=== PATIENT | female | born 1965 | race Caucasian/White ===

== ENCOUNTER 2018-12-05 16:19 | Emergency (ER) | payer OTHER ==
[~2018-12-05] VITALS: Ht 162.6 cm; Wt 49.0 kg
[~2018-12-05 16:19] MED LIST: ASPI-612 PO; AZIT1PAC PO; BUDE10.2 IH; LISI-338 PO; VARE0.5T PO
[2018-12-05] MEDS ORDERED: IV NORMAL SALINE 1000ML BAG 1,000 ML IV SCH (16:48)
[2018-12-05] MEDS ORDERED: VANCOMYCIN PER PHARMACY MC ONE (17:00)
[2018-12-05] MEDS ORDERED: DIPHTH,PERTUSS(ACELL),TET TOX 0.5 ML DISP.SYRIN. VAX IM ONE (17:00)
[2018-12-05] MEDS ORDERED: PIPERACILLIN/TAZOBACTAM 4.5 GM in IV NORMAL SALINE 100ML 100 ML IV ONE (17:00)
[2018-12-05] MEDS ORDERED: VANCOMYCIN 1.25 GM in IV NORMAL SALINE 250ML 250 ML IV ONE (17:00)
--- NOTE | 2018-12-05 17:02 | PHYS DOC ---
Past Medical History Past Medical History: CVA, Hypertension, Other Additional Past Medical Histor: cva x 2(last one 2013, no deficits) (NELY BROWN APRN) Past Surgical History: (NELY BROWN APRN) Additional Information: 0.5 PPD Alcohol Use: Heavy Drug Use: None (NELY BROWN APRN) Adult General Chief Complaint Chief Complaint: ELBOW PROBLEM HPI HPI Patient is a 53 year old female with history of hypertension who presents to the ED today complaining of right elbow pain that began 8 days ago after she fell on the elbow. Patient is also complaining of a wound to the area with drainage that she noted today. Denies any fever. Denies any nausea vomiting. (NELY BROWN APRN) Review of Systems Review of Systems Constitutional: Denies fever or chills [] Eyes: Denies change in visual acuity, redness, or eye pain [] HENT: Denies nasal congestion or sore throat [] Respiratory: Denies cough or shortness of breath [] Cardiovascular: No additional information not addressed in HPI [] GI: Denies abdominal pain, nausea, vomiting, bloody stools or diarrhea [] : Denies dysuria or hematuria [] Musculoskeletal: Reports right elbow pain Integument: Denies rash or skin lesions [] Neurologic: Denies headache, focal weakness or sensory changes [] All other systems were reviewed and found to be within normal limits, except as documented in this note. (NELY BROWN APRN) Current Medications Current Medications Current Medications Medications (Trade) Dose Ordered Sig/Damir Start Time Stop Time Status Last Admin Dose Admin Diphtheria/ Tetanus/Acell Pertussis (Boostrix) 0.5 ml ONCE ONCE 12/05/18 17:00 12/05/18 17:01 DC 12/05/18 17:02 0.5 ML Piperacillin Sod/ Tazobactam Sod 4.5 gm/Sodium Chloride 100 ml @ 200 mls/hr 1X ONCE 12/05/18 17:00 12/05/18 17:29 DC 12/05/18 17:02 200 MLS/HR Sodium Chloride 1,000 ml @ 1,650 mls/hr Q37M 12/05/18 16:48 12/05/18 17:48 DC 12/05/18 17:03 1,650 MLS/HR Vancomycin HCl (Vanco Per Pharmacy) 1 each 1X ONCE 12/05/18 17:00 12/05/18 17:01 DC Vancomycin HCl 1.25 gm/Sodium Chloride 250 ml @ 166.667 mls/hr 1X ONCE 12/05/18 17:00 12/05/18 18:29 DC 12/05/18 18:04 166.667 MLS/HR (RAMA RAI MD) Allergies Allergies Allergies Coded Allergies Type Severity Reaction Last Updated Verified No Known Drug Allergies 08/15/17 No (RAMA RAI MD) Physical Exam Physical Exam Constitutional: Well developed, well nourished, no acute distress, non-toxic appearance. [] HENT: Normocephalic, atraumatic, bilateral external ears normal, oropharynx moist, no oral exudates, nose normal. [] Eyes: PERRLA, EOMI, conjunctiva normal, no discharge. [] Neck: Normal range of motion, no tenderness, supple, no stridor. [] Cardiovascular:Heart rate regular rhythm, no murmur [] Lungs & Thorax: Bilateral breath sounds clear to auscultation [] Abdomen: Bowel sounds normal, soft, no tenderness, no masses, no pulsatile masses. [] Skin: Warm, dry, no erythema, no rash. [] Back: No tenderness, no CVA tenderness. [] Extremities: Right elbow with no obvious deformity, mild swelling noted on the right olecranon process, with a raise center of the right elbow approximately 1 x 1 cm with trace yellow drainage. There is surrounding 2 cm of cellulitis. The elbow is tender. Full range of motion to the elbow. Patient able to plantarflex the cephalexin extend and flex the right elbow. +2 right radial pulse. Adequate radial, medial, ulnar sensation to the right upper extremity. Neurologic: Alert and oriented X 3, normal motor function, normal sensory function, no focal deficits noted. [] Psychologic: Flat affect, patient is shaking (MUTUNGA,NELY [employer]ATE [employer] WORK[employer]) Current Patient Data Vital Signs Vital Signs Date Time Temp Pulse Resp B/P (MAP) Pulse Ox O2 Delivery O2 Flow Rate FiO2 12/05/18 19:00 63 18 202/79 (120) 98 Room Air 12/05/18 16:25 98.6 98.6 (RAMA RAI MD) Lab Values Laboratory Tests Test 12/05/18 17:00 White Blood Count 7.5 x10^3/uL (4.0-11.0) Red Blood Count 4.15 x10^6/uL (3.50-5.40) Hemoglobin 13.5 g/dL (12.0-15.5) Hematocrit 39.2 % (36.0-47.0) Mean Corpuscular Volume 95 fL (79-100) Mean Corpuscular Hemoglobin 33 pg (25-35) Mean Corpuscular Hemoglobin Concent 34 g/dL (31-37) Red Cell Distribution Width 15.2 % (11.5-14.5) H Platelet Count 299 x10^3/uL (140-400) Neutrophils (%) (Auto) 76 % (31-73) H Lymphocytes (%) (Auto) 16 % (24-48) L Monocytes (%) (Auto) 7 % (0-9) Eosinophils (%) (Auto) 0 % (0-3) Basophils (%) (Auto) 1 % (0-3) Neutrophils # (Auto) 5.7 x10^3uL (1.8-7.7) Lymphocytes # (Auto) 1.2 x10^3/uL (1.0-4.8) Monocytes # (Auto) 0.5 x10^3/uL (0.0-1.1) Eosinophils # (Auto) 0.0 x10^3/uL (0.0-0.7) Basophils # (Auto) 0.1 x10^3/uL (0.0-0.2) Prothrombin Time 12.6 SEC (11.7-14.0) Prothrombin Time INR 1.0 (0.8-1.1) PTT 25 SEC (24-38) Sodium Level 135 mmol/L (136-145) L Potassium Level 3.9 mmol/L (3.5-5.1) Chloride Level 96 mmol/L (98-107) L Carbon Dioxide Level 27 mmol/L (21-32) Anion Gap 12 (6-14) Blood Urea Nitrogen 19 mg/dL (7-20) Creatinine 0.8 mg/dL (0.6-1.0) Estimated GFR (Cockcroft-Gault) 74.5 BUN/Creatinine Ratio 24 (6-20) H Glucose Level 82 mg/dL (70-99) Lactic Acid Level 1.6 mmol/L (0.4-2.0) Calcium Level 9.2 mg/dL (8.5-10.1) Total Bilirubin 0.9 mg/dL (0.2-1.0) Aspartate Amino Transferase (AST) 54 U/L (15-37) H Alanine Aminotransferase (ALT) 35 U/L (14-59) Alkaline Phosphatase 140 U/L (46-116) H Total Protein 8.1 g/dL (6.4-8.2) Albumin 3.9 g/dL (3.4-5.0) Albumin/Globulin Ratio 0.9 (1.0-1.7) L Procalcitonin 0.13 ng/mL (0.00-0.10) H Laboratory Tests 12/05/18 17:00 Laboratory Tests 12/05/18 17:00 (RAMA RAI MD) Lab Values Laboratory Tests Test 12/05/18 17:00 White Blood Count 7.5 x10^3/uL (4.0-11.0) Red Blood Count 4.15 x10^6/uL (3.50-5.40) Hemoglobin 13.5 g/dL (12.0-15.5) Hematocrit 39.2 % (36.0-47.0) Mean Corpuscular Volume 95 fL (79-100) Mean Corpuscular Hemoglobin 33 pg (25-35) Mean Corpuscular Hemoglobin Concent 34 g/dL (31-37) Red Cell Distribution Width 15.2 % (11.5-14.5) H Platelet Count 299 x10^3/uL (140-400) Neutrophils (%) (Auto) 76 % (31-73) H Lymphocytes (%) (Auto) 16 % (24-48) L Monocytes (%) (Auto) 7 % (0-9) Eosinophils (%) (Auto) 0 % (0-3) Basophils (%) (Auto) 1 % (0-3) Neutrophils # (Auto) 5.7 x10^3uL (1.8-7.7) Lymphocytes # (Auto) 1.2 x10^3/uL (1.0-4.8) Monocytes # (Auto) 0.5 x10^3/uL (0.0-1.1) Eosinophils # (Auto) 0.0 x10^3/uL (0.0-0.7) Basophils # (Auto) 0.1 x10^3/uL (0.0-0.2) Prothrombin Time 12.6 SEC (11.7-14.0) Prothrombin Time INR 1.0 (0.8-1.1) PTT 25 SEC (24-38) Sodium Level 135 mmol/L (136-145) L Potassium Level 3.9 mmol/L (3.5-5.1) Chloride Level 96 mmol/L (98-107) L Carbon Dioxide Level 27 mmol/L (21-32) Anion Gap 12 (6-14) Blood Urea Nitrogen 19 mg/dL (7-20) Creatinine 0.8 mg/dL (0.6-1.0) Estimated GFR (Cockcroft-Gault) 74.5 BUN/Creatinine Ratio 24 (6-20) H Glucose Level 82 mg/dL (70-99) Lactic Acid Level 1.6 mmol/L (0.4-2.0) Calcium Level 9.2 mg/dL (8.5-10.1) Total Bilirubin 0.9 mg/dL (0.2-1.0) Aspartate Amino Transferase (AST) 54 U/L (15-37) H Alanine Aminotransferase (ALT) 35 U/L (14-59) Alkaline Phosphatase 140 U/L (46-116) H Total Protein 8.1 g/dL (6.4-8.2) Albumin 3.9 g/dL (3.4-5.0) Albumin/Globulin Ratio 0.9 (1.0-1.7) L Procalcitonin 0.13 ng/mL (0.00-0.10) H Laboratory Tests 12/05/18 17:00 Laboratory Tests 12/05/18 17:00 (NELY BROWN APRN) EKG EKG [] (NELY BROWN APRN) Radiology/Procedures Radiology/Procedures []PROCEDURE: ELBOW RIGHT 3V Three-view right elbow dated 12/05/2018. No comparison available. CLINICAL INDICATION: Pain after injury. FINDINGS: 3 views right elbow show normal bony alignment. No displaced fracture. No acute osseous or articular abnormality. No fat pad elevation to suggest joint effusion. There is mild soft tissue swelling. IMPRESSION: Soft tissue swelling with no evidence of underlying acute bony abnormality. Electronically signed by: Bryan Taylor MD (12/05/2018 6:40 PM) [facility] DICTATED and SIGNED BY: BRYAN TAYLOR MD DATE: 12/05/181839 (NELY BROWN APRN) Course & Med Decision Making Course & Med Decision Making Pertinent Labs and Imaging studies reviewed. (See chart for details) This is a 53-year-old female presenting to the ED today with right elbow pain and wound after falling on the elbow 8 days ago, patient has what appears to be an abscess with cellulitis on the right elbow, there is concern for septic joint. CBC with a WBC of 7.5, lactic is normal at 1.6, pro-calcitonin 0.13. Vitals on arrival to the ED temperature 98.6, heart rate 100, blood pressure 202/93. Right elbow x-rays interpreted by radiologist-Soft tissue swelling with no evidence of underlying acute bony abnormality. Patient was started on sepsis protocol on arrival to the ED, was given Zosyn and vancomycin. Continued to offer patient admission, she completely declined. She signed out A MA, she is alert oriented 4, able to make her own decisions. She is given the risk of leaving AMA including and disability. I did give her prescription for Bactrim and cephalexin for this abscess and cellulitis. I did provide patient follow-up information. I recommended she returns to the ED at any point symptoms worsen or she decides she needs to be admitted. (NELY BROWN APRN) Course & Med Decision Making Staff Physician Addendum: I was working in the ER during the course of this patient's visit. I was available for consultation as needed, but I was not directly involved in the care of this patient. (RAMA RAI MD) Dragon Disclaimer Dragon Disclaimer This electronic medical record was generated, in whole or in part, using a voice recognition dictation system. (NELY BROWN APRN) Departure Departure Impression: Primary Impression: Cellulitis of right elbow Additional Impression: Abscess of bursa, right elbow Disposition: AGAINST MEDICAL ADVICE Condition: STABLE Referrals: NO PCP (PCP) CANDICE FOURNIER II, MD Follow up with your doctor in the provided orthopedic doctor in 2-5 days. Patient Instructions: Abscess, Cellulitis, [id number] Additional Instructions: You have an abscess and cellulitis to the right elbow. We recommended admission but she preferred to go home. We put you on antibiotics, ensure you take them until completed. Please follow-up with the orthopedic doctor or your own primary care doctor in the next 3-5 days. Please come back to the ED at any point symptoms worsen. Scripts Sulfamethoxazole/Trimethoprim (BACTRIM DS TABLET) 1 Each Tablet 1 TAB PO BID, #20 TAB Prov: NELY BROWN APRN 12/05/18 Cephalexin (CEPHALEXIN) 500 Mg Capsule 1 CAP PO QID, #40 CAP Prov: NELY BROWN APRN 12/05/18 Problem Qualifiers NELY BROWN APRN Dec 05, 2018 17:02 RAMA RAI MD Dec 05, 2018 19:48
[2018-12-05 17:17] LABS: BASO # 0.1 x10^3/uL (0.0-0.2); BASO % 1 % (0-3); EOS % 0 % (0-3); HEMATOCRIT 39.2 % (36.0-47.0); HEMOGLOBIN 13.5 g/dL (12.0-15.5); LYMPH # 1.2 x10^3/uL (1.0-4.8); LYMPH % 16 % (24-48); MEAN CORPUSCULAR HEMOGLOBIN 33 pg (25-35); MEAN CORPUSCULAR HGB CONC 34 g/dL (31-37); MEAN CORPUSCULAR VOLUME 95 fL (79-100); MONO # 0.5 x10^3/uL (0.0-1.1); MONO % 7 % (0-9); NEUT # 5.7 x10^3uL (1.8-7.7); NEUT % 76 % (31-73); PLATELET COUNT 299 x10^3/uL (140-400); RED BLOOD COUNT 4.15 x10^6/uL (3.50-5.40); RED CELL DISTRIBUTION WIDTH 15.2 % (11.5-14.5); WHITE BLOOD COUNT 7.5 x10^3/uL (4.0-11.0)
[2018-12-05 17:23] LABS: PROTHROMBIN TIME PATIENT 12.6 SEC (11.7-14.0)
[2018-12-05 17:26] LABS: CALCIUM 9.2 mg/dL (8.5-10.1); CREATININE 0.8 mg/dL (0.6-1.0); GFR 74.5; POTASSIUM 3.9 mmol/L (3.5-5.1)
[2018-12-05 17:32] LABS: ALBUMIN 3.9 g/dL (3.4-5.0); ALBUMIN/GLOBULIN RATIO 0.9 (1.0-1.7); TOTAL BILIRUBIN 0.9 mg/dL (0.2-1.0); TOTAL PROTEIN 8.1 g/dL (6.4-8.2)
--- NOTE | 2018-12-05 18:43 | RAD ---
Three-view right elbow dated 12/05/2018. No comparison available. CLINICAL INDICATION: Pain after injury. FINDINGS: 3 views right elbow show normal bony alignment. No displaced fracture. No acute osseous or articular abnormality. No fat pad elevation to suggest joint effusion. There is mild soft tissue swelling. IMPRESSION: Soft tissue swelling with no evidence of underlying acute bony abnormality. Electronically signed by: Bryan Taylor MD (12/05/2018 6:40 PM) [facility]
[2018-12-05 19:00] VITALS: BP 202/79
[2018-12-05] MEDS ORDERED: CEPH500C PO (19:21)
[2018-12-05] MEDS ORDERED: SULF1TAB24 PO (19:21)
== END 2018-12-05 19:50 | disposition home or self-care (01) ==
LOC: ER 16:19
DX: L03.113 Cellulitis of right upper limb (principal); M71.021 Abscess of bursa, right elbow; I10 Essential (primary) hypertension; F17.200 Nicotine dependence, unspecified, uncomplicated; F10.20 Alcohol dependence, uncomplicated; Y90.9 Presence of alcohol in blood, level not specified; Z98.890 Other specified postprocedural states; Z86.73 Personal history of transient ischemic attack (TIA), and cerebral infarction without residual deficits; W19.XXXA Unspecified fall, initial encounter; Y93.89 Activity, other specified; Y92.89 Other specified places as the place of occurrence of the external cause; Y99.8 Other external cause status
CPT/HCPCS: 36415; 73080; 80053; 83605; 84145; 85025; 85610; 85730; 87040; 90471; 90715; 96365; 96367; 99285; J2543; J3370; J7030; J7050

== ENCOUNTER 2018-12-06 05:02 | Emergency (ER) | payer OTHER ==
[~2018-12-06] VITALS: Ht 157.5 cm; Wt 49.0 kg
[~2018-12-06 05:02] MED LIST changes: +CEPH500C PO; +SULF1TAB24 PO
[2018-12-06 05:15] VITALS: BP 180/87
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
== END 2018-12-06 05:34 | disposition home or self-care (01) ==
LOC: ER 05:02
DX: M70.21 Olecranon bursitis, right elbow (principal); I10 Essential (primary) hypertension; Z86.73 Personal history of transient ischemic attack (TIA), and cerebral infarction without residual deficits; Z98.890 Other specified postprocedural states; F10.20 Alcohol dependence, uncomplicated; Y90.9 Presence of alcohol in blood, level not specified
CPT/HCPCS: 20605; 20610; 99284

== ENCOUNTER 2018-12-22 13:07 | Emergency (ER) | payer OTHER ==
[~2018-12-22] VITALS: Ht 157.5 cm; Wt 49.0 kg
[2018-12-22 13:20] VITALS: BP 168/83
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
[2018-12-22] MEDS ORDERED: PRED20TA PO (14:41)
[2018-12-22] MEDS ORDERED: HYDR-3164 PO (14:41)
== END 2018-12-22 14:50 | disposition home or self-care (01) ==
LOC: ER 13:07
DX: S22.31XA Fracture of one rib, right side, initial encounter for closed fracture (principal); I10 Essential (primary) hypertension; F17.200 Nicotine dependence, unspecified, uncomplicated; Z98.890 Other specified postprocedural states; Z86.73 Personal history of transient ischemic attack (TIA), and cerebral infarction without residual deficits; F10.20 Alcohol dependence, uncomplicated; Y90.9 Presence of alcohol in blood, level not specified; V49.9XXA Car occupant (driver) (passenger) injured in unspecified traffic accident, initial encounter; Y93.89 Activity, other specified; Y92.410 Unspecified street and highway as the place of occurrence of the external cause; Y99.8 Other external cause status
CPT/HCPCS: 71101; 99284

== ENCOUNTER 2020-02-28 05:40 | Observation (INO) | payer OTHER ==
[~2020-02-28] VITALS: Ht 157.5 cm; Wt 51.3 kg
[~2020-02-28 05:40] MED LIST changes: -ASPI-612 PO; +ASPI-886 PO; +HYDR-3164 PO; +PRED20TA PO
[2020-02-28] MEDS ORDERED: ASPIRIN CHEWABLE 81 MG TABLET. PO ONE (06:30)
[2020-02-28 06:33] LABS: BASO # 0.1 x10^3/uL (0.0-0.2); BASO % 1 % (0-3); EOS # 0.1 x10^3/uL (0.0-0.7); EOS % 1 % (0-3); HEMATOCRIT 37.7 % (36.0-47.0); HEMOGLOBIN 12.8 g/dL (12.0-15.5); LYMPH # 1.6 x10^3/uL (1.0-4.8); LYMPH % 16 % (24-48); MEAN CORPUSCULAR HEMOGLOBIN 33 pg (25-35); MEAN CORPUSCULAR HGB CONC 34 g/dL (31-37); MEAN CORPUSCULAR VOLUME 97 fL (79-100); MONO # 0.8 x10^3/uL (0.0-1.1); MONO % 8 % (0-9); NEUT # 7.4 x10^3/uL (1.8-7.7); NEUT % 74 % (31-73); PLATELET COUNT 327 x10^3/uL (140-400); RED BLOOD COUNT 3.91 x10^6/uL (3.50-5.40); RED CELL DISTRIBUTION WIDTH 15.1 % (11.5-14.5); WHITE BLOOD COUNT 9.9 x10^3/uL (4.0-11.0)
--- NOTE | 2020-02-28 06:33 | RAD ---
Chest PA and lateral: Reason for examination: Chest pain. Comparison is made to previous study dated 12/22/2018. The heart size is normal. Mediastinum is unremarkable. Lung unger are hyperaerated and show some mild increase in interstitial markings at the bases with lucency at the apices. This may reflect some emphysema with interstitial fibrosis. No consolidated infiltrates or pleural effusions are seen. No acute bony abnormalities are evident. There does appear to be an old rib fracture at the right eighth rib posteriorly. No acute bony abnormalities are seen. Impression: Hyperaerated lung unger with increased interstitial markings at the bases and apical lucencies. Changes with probable due to COPD. Electronically signed by: Jennifer Carlton MD (02/28/2020 6:30 AM) [facility]
[2020-02-28 06:35] LABS: CALCIUM 8.5 mg/dL (8.5-10.1); CREATININE 0.5 mg/dL (0.6-1.0); GFR 127.6; POTASSIUM 3.4 mmol/L (3.5-5.1)
[2020-02-28 06:41] LABS: ALBUMIN 3.2 g/dL (3.4-5.0); ALBUMIN/GLOBULIN RATIO 0.9 (1.0-1.7); TOTAL BILIRUBIN 0.3 mg/dL (0.2-1.0); TOTAL PROTEIN 6.8 g/dL (6.4-8.2)
[2020-02-28] MEDS ORDERED: MORPHINE SULFATE 10 MG/ML VIAL. IV ONE (07:00)
[2020-02-28] MEDS ORDERED: ONDANSETRON PF 4 MG/2 ML VIAL. IVP ONE (07:00)
--- NOTE | 2020-02-28 07:01 | PHYS DOC ---
Past Medical History Past Medical History: CVA, Hypertension, Other Additional Past Medical Histor: cva x 2(last one 2013, no deficits) Past Surgical History: Smoking Status: Current Every Day Smoker Alcohol Use: Heavy Additional Information: Daily drinker, verbalized helps her to sleep Drug Use: None General Adult EDM: Chief Complaint: MULTIPLE COMPLAINTS HPI: HPI: Patient is a 54-year-old female who presents to the emergency room complaining of chest tightness, right shoulder pain that radiates into the right side of the neck, nausea, vomiting. Patient states that she had some right shoulder pain a couple of days ago that was mild and resolved on its own. She woke up this morning and had right shoulder pain again. The pain got significantly worse and started radiating into her neck. This is been ongoing for the last 5 hours. She then developed chest tightness with associated shortness of breath. She denies any wheezing, cough, URI symptoms, fever. She has been having nausea and had an episode of vomiting while in the emergency room. She denies any abdominal pain. Review of Systems: Review of Systems: General: Denies fever, chills, sweats, fatigue Eyes: Denies drainage, blurred vision, eye redness HENT: Denies rhinorrhea, sore throat, earache Respiratory: Denies cough, wheezing. Reports shortness of breath Cardiac: Denies edema, palpitations.reports chest pain GI: Denies abdominal pain. Reports nausea, vomiting MSK: Denies back pain, neck pain Skin: Denies rash, jaundice Neuro: Denies headache, dizziness Psychiatric: Denies SI/HI Heart Score: HEART Score for Chest Pain: HEART Score for Chest Pain Response (Comments) Value History Moderately Suspicious 1 ECG Nonspecific Repolarizatio 1 Age >45 - < 65 1 Risk Factors 1 or 2 Risk Factors 1 Troponin < Normal Limit 0 Total 4 Risk Factors: Risk Factors: DM, Current or recent (<one month) smoker, HTN, HLP, family history of CAD, obesity. Risk Scores: Score 0 - 3: 2.5% MACE over next 6 weeks - Discharge Home Score 4 - 6: 20.3% MACE over next 6 weeks - Admit for Clinical Observation Score 7 - 10: 72.7% MACE over next 6 weeks - Early Invasive Strategies Current Medications: Current Medications Medications (Trade) Dose Ordered Sig/Damir Start Time Stop Time Status Last Admin Dose Admin Aspirin (Aspirin Chewable) 324 mg 1X ONCE 02/28/20 06:30 02/28/20 06:31 DC 02/28/20 06:54 324 MG Morphine Sulfate (Morphine Sulfate) 5 mg 1X ONCE 02/28/20 07:00 02/28/20 07:01 Ondansetron HCl (Zofran) 4 mg 1X ONCE 02/28/20 07:00 02/28/20 07:01 02/28/20 06:53 4 MG Allergies: Allergies: Allergies Coded Allergies Type Severity Reaction Last Updated Verified No Known Drug Allergies 08/15/17 No Physical Exam: PE: General: Awake, alert, mild distress. Well Nourished, well hydrated. Cooperative HEENT: Atraumatic, EOMI, PERRL, airway patent, moist oral mucosa Neck: Supple, trachea midline Respiratory: CTA bilaterally, normal effort, no wheezing/crackles CV: RRR, no murmur, cap refill <2 GI: Soft, nondistended, nontender, no masses MSK: No obvious deformities Skin: Warm, dry, intact Neuro: A&O x3, speech NL, sensory and motor grossly intact, no focal deficits Psych: Normal affect, anxious, not suicidal or homicidal Current Patient Data: Labs: Laboratory Tests Test 02/28/20 06:10 White Blood Count 9.9 x10^3/uL (4.0-11.0) Red Blood Count 3.91 x10^6/uL (3.50-5.40) Hemoglobin 12.8 g/dL (12.0-15.5) Hematocrit 37.7 % (36.0-47.0) Mean Corpuscular Volume 97 fL (79-100) Mean Corpuscular Hemoglobin 33 pg (25-35) Mean Corpuscular Hemoglobin Concent 34 g/dL (31-37) Red Cell Distribution Width 15.1 % (11.5-14.5) H Platelet Count 327 x10^3/uL (140-400) Neutrophils (%) (Auto) 74 % (31-73) H Lymphocytes (%) (Auto) 16 % (24-48) L Monocytes (%) (Auto) 8 % (0-9) Eosinophils (%) (Auto) 1 % (0-3) Basophils (%) (Auto) 1 % (0-3) Neutrophils # (Auto) 7.4 x10^3/uL (1.8-7.7) Lymphocytes # (Auto) 1.6 x10^3/uL (1.0-4.8) Monocytes # (Auto) 0.8 x10^3/uL (0.0-1.1) Eosinophils # (Auto) 0.1 x10^3/uL (0.0-0.7) Basophils # (Auto) 0.1 x10^3/uL (0.0-0.2) Sodium Level 141 mmol/L (136-145) Potassium Level 3.4 mmol/L (3.5-5.1) L Chloride Level 103 mmol/L (98-107) Carbon Dioxide Level 30 mmol/L (21-32) Anion Gap 8 (6-14) Blood Urea Nitrogen 9 mg/dL (7-20) Creatinine 0.5 mg/dL (0.6-1.0) L Estimated GFR (Cockcroft-Gault) 127.6 BUN/Creatinine Ratio 18 (6-20) Glucose Level 102 mg/dL (70-99) H Calcium Level 8.5 mg/dL (8.5-10.1) Total Bilirubin 0.3 mg/dL (0.2-1.0) Aspartate Amino Transferase (AST) 19 U/L (15-37) Alanine Aminotransferase (ALT) 14 U/L (14-59) Alkaline Phosphatase 94 U/L (46-116) Troponin I Quantitative < 0.017 ng/mL (0.000-0.055) TG-Tnt-K-Type Natriuretic Peptide 474 pg/mL (0-124) H Total Protein 6.8 g/dL (6.4-8.2) Albumin 3.2 g/dL (3.4-5.0) L Albumin/Globulin Ratio 0.9 (1.0-1.7) L Laboratory Tests 02/28/20 06:10 Laboratory Tests 02/28/20 06:10 Vital Signs: Vital Signs Date Time Temp Pulse Resp B/P (MAP) Pulse Ox O2 Delivery O2 Flow Rate FiO2 02/28/20 05:55 98.0 65 26 161/73 (102) 96 Room Air 98.0 EKG: EKG: [] Radiology/Procedures: Radiology/Procedures: [] Course & Med Decision Making: Course & Med Decision Making Pertinent Labs and Imaging studies reviewed. (See chart for details) Patient is a 54 year-old female who presents to the Emergency Room complaining of chest pain, right shoulder pain, neck pain, nausea, vomiting, shortness of breath. History is significant for recent episodes of similar pain. At this time, given patient's risk factors and story there is concern for possible cardiac pathology. EKG was ordered and shows changes suggestive of prior ischemia. At this time there is no signs of STEMI, pericarditis, or unstable arrthymia on EKG. Patient has received aspirin today. CBC, BMP, troponin, CXR were ordered to evaluate for causes of chest pain including ACS, anemia, electrolyte abnormalities that can lead to arrhythmias, PTX, pneumonia, pneumomediastinum. Given patient's bilious vomiting will evaluate for possible cholecystitis with referred pain to the shoulder. Given her pleuritic chest pain and shortness of breath we will do a d-dimer to rule out a pulmonary embolism. Patient's HEART score is 4 placing the patient at moderate risk. Patient was given morphine and Zofran here in the emergency room. She will be admitted for cardiac work up Marilee Disclaimer: Marilee Disclaimer: This electronic medical record was generated, in whole or in part, using a voice recognition dictation system. Departure Departure Impression: Primary Impression: Chest pain Additional Impression: Vomiting bile Referrals: NO PCP (PCP) Justicifation of Admission Dx: Justifications for Admission: Justification of Admission Dx: Yes VASQUEZ BARRETT MD Feb 28, 2020 07:01
[2020-02-28 07:33] LABS: C-REACTIVE PROTEIN 0.7 mg/L (0-3.3)
--- NOTE | 2020-02-28 07:39 | RAD ---
Limited abdominal ultrasound INDICATION: Bilious vomiting COMPARISON: Abdominal MRI of 08/15/2017 TECHNIQUE: Grayscale and color Doppler imaging of the abdomen focus in the right upper quadrant was performed FINDINGS: The liver is diffusely echogenic, compatible fatty infiltration. No masses are identified. No biliary dilation is seen either. The common duct at the luis hepatis measures 4.4 mm. The gallbladder is normal. The pancreas, IVC and visualized portal and hepatic veins are unremarkable with normal directional flow. Right kidney measures 10.5 x 4.6 x 5.4 cm and contains an inferior pole 3.8 x 3.1 x2.9 cm cyst, with thin internal septation similar to prior. IMPRESSION: 1. Fatty liver. No biliary dilation. No sonographic evidence of acute cholecystitis. 2. Incidental right renal cyst in the mid to inferior pole measuring 3.8 cm. Electronically signed by: Gabriel Rodriguez MD (02/28/2020 7:35 AM) [id number]
--- NOTE | 2020-02-28 08:29 | PDOC1 ---
History and Physical Date of Admission Date of Admission DATE: 02/28/20 TIME: 08:28 Identification/Chief Complaint Chief Complaint chest pain Source Source: Patient History of Present Illness History of Present Illness Ms Westfall is a 54-year-old female w/ PMHx CVA (x2), Hypertension, smoker, heavy ETOH abuse who presents to the emergency room complaining of chest tightness, right shoulder pain that radiates into the right side of the neck, nausea, vomiting. Patient states that she had some right shoulder pain a couple of days ago that was mild and resolved on its own. She woke up this morning and had right shoulder pain again. The pain got significantly worse and started radiating into her neck. This is been ongoing for the last 5 hours. She then developed chest tightness with associated shortness of breath. She denies any wheezing, cough, URI symptoms, fever. She has been having nausea and had an episode of vomiting while in the emergency room. She denies any abdominal pain. Ethanol level 168 at 6:10 AM, WBC 9.9, Hb 12.8, platelets 327, d-dimer 0.36, troponin 0, albumin 3.2, BNP 474, NA 141, K3.4, magnesium 1.6, BUN 9, CR 0.5, glucose 102 CXR with emphysematous changes. RUQ US negative for acute cholecystitis. Past Medical History Cardiovascular: Hyperlipidemia Pulmonary: COPD CENTRAL NERVOUS SYSTEM: CVA GI: GERD Heme/Onc: No pertinent hx Hepatobiliary: No pertinent hx Rheumatologic: Other Past Surgical History Past Surgical History: No pertinent history Family History Family History: Hypertension, Other Social History Smoke: 1 pack per day ALCOHOL: heavy Drugs: Marijuana Current Problem List Problem List Problems Medical Problems: (1) Vomiting bile Status: Acute Current Medications Current Medications Current Medications Aspirin (Aspirin Chewable) 324 mg 1X ONCE PO Last administered on 02/28/20at 06:54; Start 02/28/20 at 06:30; Stop 02/28/20 at 06:31; Status DC Ondansetron HCl (Zofran) 4 mg 1X ONCE IVP Last administered on 02/28/20at 06:53; Start 02/28/20 at 07:00; Stop 02/28/20 at 07:01; Status DC Morphine Sulfate (Morphine Sulfate) 5 mg 1X ONCE IV Last administered on 9/29/20at 07:02; Start 02/28/20 at 07:00; Stop 02/28/20 at 07:01; Status DC Active Scripts Active Prednisone 20 Mg Tablet 20 Mg PO DAILY 7 Days Caruthers 5-325 Tablet (Acetaminophen/Hydrocodone Bitart) 1 Each Tablet 1 Tab PO PRN Q6HRS PRN Bactrim Ds Tablet (Sulfamethoxazole/Trimethoprim) 1 Each Tablet 1 Tab PO BID Cephalexin 500 Mg Capsule 1 Cap PO QID Zithromax Packet (Azithromycin) 1 Gm Packet 1 Packet PO ONCE Symbicort 160-4.5 Mcg Inhaler (Budesonide/Formoterol Fumarate) 10.2 Gm Hfa.aer.ad 2 Puff IH BID Lisinopril 5 Mg Tablet 5 Mg PO DAILY 30 Days Aspirin Ec (Aspirin) 81 Mg Tablet.dr 81 Mg PO DAILYWBKFT 30 Days Chantix (Varenicline Tartrate) 0.5 Mg Tablet 0.5 Mg PO DIRECTED 30 Days 0.5 MG PO DAILY X3 DAY, 0.5 MG PO BID X4 DAY, 1 MG PO BID UNTIL END OF TREATMENT Allergies Allergies: Coded Allergies: No Known Drug Allergies (Unverified , 08/15/17) ROS General: YES: Fatigue, Malaise; No: Chills, Night Sweats, Appetite, Other PSYCHOLOGICAL ROS: No: Anxiety, Behavioral Disorder, Concentration difficultie, Decreased libido, Depression, Disorientation, Hallucinations, Hostility, Irritablity, Memory difficulties, Mood Swings, Obsessive thoughts, Physical abuse, Sexual abuse, Sleep disturbances, Suicidal ideation, Other Eyes: No Blurry vision, No Decreased vision, No Double vision, No Dry eyes, No Excessive tearing, No Eye Pain, No Itchy Eyes, No Loss of vision, No Photophobia, No Scotomata, No Uses contacts, No Uses glasses, No Other HEENT: No: Heacaches, Visual Changes, Hearing change, Nasal congestion, Nasal discharge, Oral lesions, Sinus pain, Sore Throat, Epistaxis, Sneezing, Snoring, Tinnitus, Vertigo, Vocal changes, Other ALLERGY AND IMMUNOLOGY: No: Hives, Insect Bite Sensitivity, Itchy/Watery Eyes, Nasal Congestion, Post Nasal Drip, Seasonal Allergies, Other Hematological and Lymphatic: No: Bleeding Problems, Blood Clots, Blood Transfusions, Brusing, Night Sweats, Pallor, Swollen Lymph Nodes, Other ENDOCRINE: No: Breast Changes, Galactorrhea, Hair Pattern Changes, Hot Flashes, Malaise/lethargy, Mood Swings, Palpitations, Polydipsia/polyuria, Skin Changes, Temperature Intolerance, Unexpected Weight Changes, Other Breast: No New/Changing Breast Lumps, No Nipple changes, No Nipple discharge, No Other Respiratory: No: Cough, Hemoptysis, Orthopnea, Pleuritic Pain, Shortness of breath, SOB with excertion, Sputum Changes, Stridor, Tachypnea, Wheezing, Other Cardiovascular: No Chest Pain, No Palpitations, No Orthopnea, No Paroxysmal Noc. Dyspnea, No Edema, No Lt Headedness, No Other Gastrointestinal: Yes Nausea; No Vomiting, No Abdominal Pain, No Diarrhea, No Constipation, No Melena, No Hematochezia, No Other Genitourinary: No Dysuria, No Frequency, No Incontinence, No Hematuria, No Retention, No Discharge, No Urgency, No Pain, No Flank Pain, No Other, No , No , No , No , No , No , No Musculoskeletal: No Gait Disturbance, No Joint Pain, No Joint Stiffness, No Joint Swelling, No Muscle Pain, No Muscular Weakness, No Pain In:, No Swelling In:, No Other Neurological: No Behavorial Changes, No Bowel/Bladder ControlChng, No Confusion, No Dizziness, No Gait Disturbance, No Headaches, No Impaired Coord/balance, No Memory Loss, No Numbness/Tingling, No Seizures, No Speech Problems, No Tremors, No Visual Changes, No Weakness, No Other Skin: No Dry Skin, No Eczema, No Hair Changes, No Lumps, No Mole Changes, No Mottling, No Nail Changes, No Pruritus, No Rash, No Skin Lesion Changes, No Other, No Acne Physical Exam General: Alert, Cooperative, mild distress HEENT: Atraumatic, PERRLA, EOMI, Mucous membr. moist/pink Lungs: Clear to auscultation, Normal air movement Heart: S1S2, RRR, no thrills, no rubs, no gallops, no murmurs Abdomen: Normal bowel sounds, Soft, No tenderness, No hepatosplenomegaly, No masses Rectal Exam: not examined Extremities: No clubbing, No cyanosis, No edema, Normal pulses, No tenderness/swelling Skin: No rashes, No breakdown, No significant lesion Neuro: Normal gait, Normal speech, Strength at 5/5 X4 ext, Normal tone, Sensation intact, Cranial nerves 3-12 NL, Reflexes 2+ Vitals Vitals Vital Signs Date Time Temp Pulse Resp B/P (MAP) Pulse Ox O2 Delivery O2 Flow Rate FiO2 02/28/20 07:30 60 18 130/60 (83) 98 Room Air 02/28/20 05:55 98.0 98.0 Labs Labs Laboratory Tests Test 02/28/20 06:10 White Blood Count 9.9 x10^3/uL (4.0-11.0) Red Blood Count 3.91 x10^6/uL (3.50-5.40) Hemoglobin 12.8 g/dL (12.0-15.5) Hematocrit 37.7 % (36.0-47.0) Mean Corpuscular Volume 97 fL (79-100) Mean Corpuscular Hemoglobin 33 pg (25-35) Mean Corpuscular Hemoglobin Concent 34 g/dL (31-37) Red Cell Distribution Width 15.1 % (11.5-14.5) Platelet Count 327 x10^3/uL (140-400) Neutrophils (%) (Auto) 74 % (31-73) Lymphocytes (%) (Auto) 16 % (24-48) Monocytes (%) (Auto) 8 % (0-9) Eosinophils (%) (Auto) 1 % (0-3) Basophils (%) (Auto) 1 % (0-3) Neutrophils # (Auto) 7.4 x10^3/uL (1.8-7.7) Lymphocytes # (Auto) 1.6 x10^3/uL (1.0-4.8) Monocytes # (Auto) 0.8 x10^3/uL (0.0-1.1) Eosinophils # (Auto) 0.1 x10^3/uL (0.0-0.7) Basophils # (Auto) 0.1 x10^3/uL (0.0-0.2) D-Dimer (Elda) 0.36 ug/mlFEU (0.00-0.50) Sodium Level 141 mmol/L (136-145) Potassium Level 3.4 mmol/L (3.5-5.1) Chloride Level 103 mmol/L (98-107) Carbon Dioxide Level 30 mmol/L (21-32) Anion Gap 8 (6-14) Blood Urea Nitrogen 9 mg/dL (7-20) Creatinine 0.5 mg/dL (0.6-1.0) Estimated GFR (Cockcroft-Gault) 127.6 BUN/Creatinine Ratio 18 (6-20) Glucose Level 102 mg/dL (70-99) Calcium Level 8.5 mg/dL (8.5-10.1) Total Bilirubin 0.3 mg/dL (0.2-1.0) Aspartate Amino Transf (AST/SGOT) 19 U/L (15-37) Alanine Aminotransferase (ALT/SGPT) 14 U/L (14-59) Alkaline Phosphatase 94 U/L (46-116) Creatine Kinase 44 U/L (26-192) Troponin I Quantitative < 0.017 ng/mL (0.000-0.055) C-Reactive Protein, Quantitative 0.7 mg/L (0-3.3) [id number]-[id number]-G-Type Natriuretic Peptide 474 pg/mL (0-124) Total Protein 6.8 g/dL (6.4-8.2) Albumin 3.2 g/dL (3.4-5.0) Albumin/Globulin Ratio 0.9 (1.0-1.7) Laboratory Tests Test 02/28/20 06:10 White Blood Count 9.9 x10^3/uL (4.0-11.0) Red Blood Count 3.91 x10^6/uL (3.50-5.40) Hemoglobin 12.8 g/dL (12.0-15.5) Hematocrit 37.7 % (36.0-47.0) Mean Corpuscular Volume 97 fL (79-100) Mean Corpuscular Hemoglobin 33 pg (25-35) Mean Corpuscular Hemoglobin Concent 34 g/dL (31-37) Red Cell Distribution Width 15.1 % (11.5-14.5) Platelet Count 327 x10^3/uL (140-400) Neutrophils (%) (Auto) 74 % (31-73) Lymphocytes (%) (Auto) 16 % (24-48) Monocytes (%) (Auto) 8 % (0-9) Eosinophils (%) (Auto) 1 % (0-3) Basophils (%) (Auto) 1 % (0-3) Neutrophils # (Auto) 7.4 x10^3/uL (1.8-7.7) Lymphocytes # (Auto) 1.6 x10^3/uL (1.0-4.8) Monocytes # (Auto) 0.8 x10^3/uL (0.0-1.1) Eosinophils # (Auto) 0.1 x10^3/uL (0.0-0.7) Basophils # (Auto) 0.1 x10^3/uL (0.0-0.2) D-Dimer (Elda) 0.36 ug/mlFEU (0.00-0.50) Sodium Level 141 mmol/L (136-145) Potassium Level 3.4 mmol/L (3.5-5.1) Chloride Level 103 mmol/L (98-107) Carbon Dioxide Level 30 mmol/L (21-32) Anion Gap 8 (6-14) Blood Urea Nitrogen 9 mg/dL (7-20) Creatinine 0.5 mg/dL (0.6-1.0) Estimated GFR (Cockcroft-Gault) 127.6 BUN/Creatinine Ratio 18 (6-20) Glucose Level 102 mg/dL (70-99) Calcium Level 8.5 mg/dL (8.5-10.1) Total Bilirubin 0.3 mg/dL (0.2-1.0) Aspartate Amino Transf (AST/SGOT) 19 U/L (15-37) Alanine Aminotransferase (ALT/SGPT) 14 U/L (14-59) Alkaline Phosphatase 94 U/L (46-116) Creatine Kinase 44 U/L (26-192) Troponin I Quantitative < 0.017 ng/mL (0.000-0.055) C-Reactive Protein, Quantitative 0.7 mg/L (0-3.3) YU-[id number]-M-Type Natriuretic Peptide 474 pg/mL (0-124) Total Protein 6.8 g/dL (6.4-8.2) Albumin 3.2 g/dL (3.4-5.0) Albumin/Globulin Ratio 0.9 (1.0-1.7) Images Images CXR: The heart size is normal. Mediastinum is unremarkable. Lung unger are hyperaerated and show some mild increase in interstitial markings at the bases with lucency at the apices. This may reflect some emphysema with interstitial fibrosis. No consolidated infiltrates or pleural effusions are seen. No acute bony abnormalities are evident. There does appear to be an old rib fracture at the right eighth rib posteriorly. No acute bony abnormalities are seen. Impression: Hyperaerated lung unger with increased interstitial markings at the bases and apical lucencies. Changes with probable due to COPD. VTE Prophylaxis Ordered VTE Prophylaxis Devices: No VTE Pharmacological Prophylaxi: Yes Assessment/Plan Assessment/Plan A/P: Chest pain - no CP. Trops nml x3, EKG SR without acute changes HTN - controlled, no home meds COPD - stable Tobacco abuse Chronic alcoholism - 1/2 pint whiskey nightly using is for sleep Coronary calcifications: from past CT Fatty liver disease with associated ETOH Diarrhea - 6x daily loose to watery mucousy. defer to PCP Hx of CVA Hypokalemia/hypomagnesemia - replaced Acute alcohol intoxication - can likely d/c when sober FEN - Cardiac diet PPX - Lovenox FULL CODE Dispo - Observation for chest pain Justifications for Admission Other Justification EMELY DAVIS MD Feb 28, 2020 08:29
--- NOTE | 2020-02-28 09:07 | PDOC2 ---
HU LUCAS JANITOR 02/28/20 0907: CARDIAC CONSULT DATE OF CONSULT Date of Consult DATE: 02/28/20 TIME: 09:02 REASON FOR CONSULT Reason for Consult: Chest pain REFERRING PHYSICIAN Referring Physician: Neil SOURCE Source: Chart review, Patient HISTORY OF PRESENT ILLNESS HISTORY OF PRESENT ILLNESS This is a pleasant 54 yo female admitted for complains of right neck and right shoulder discomfort. Reports tightness around this region which as of now not present and also not reprocuible with palpation or ROM. Reports no nausea or vomiting, palpitations or diaphoresis. Denies any chest pain or VELASQUEZ. No fatigue no fever or chills. No recent antbiotics and actually does not take any home routine medications except for PRN ibuprofen. Reports no indigestion but has been having diarrhea ranging from watery to loose and no black stools about 6x daily for about 2 weeks nw. she smokes tobacco no recreational drug use but velasquez utilize alcohol for sleep heavily. No recent falls or injury and no recent exposure to covid and no past hx of CAD, VTE. to add no prior antibiotic therapy. PAST MEDICAL HISTORY Cardiovascular: HTN Pulmonary: COPD CENTRAL NERVOUS SYSTEM: CVA GI: No pertinent hx Heme/Onc: No pertinent hx Psych: Other (insomnia, alcoholism) Musculoskeletal: Osteoarthritis Rheumatologic: No pertinent hx Infectious disease: No pertinent hx ENT: No pertinent hx Renal/: No pertinent hx Endocrine: No pertinent hx Dermatology: No pertinent hx PAST SURGICAL HISTORY Past Surgical History: FAMILY HISTORY Family History: Hypertension SOCIAL HISTORY Smoke: <1 pack per day ALCOHOL: heavy Drugs: None Lives: with Family CURRENT MEDICATIONS CURRENT MEDICATIONS Current Medications Medications (Trade) Dose Ordered Sig/Damir Route PRN Reason Start Time Stop Time Status Last Admin Dose Admin Aspirin (Aspirin Chewable) 324 mg 1X ONCE PO 02/28/20 06:30 02/28/20 06:31 DC 02/28/20 06:54 Ondansetron HCl (Zofran) 4 mg 1X ONCE IVP 02/28/20 07:00 02/28/20 07:01 DC 02/28/20 06:53 Morphine Sulfate (Morphine Sulfate) 5 mg 1X ONCE IV 02/28/20 07:00 02/28/20 07:01 DC 02/28/20 07:02 ALLERGIES ALLERGIES: Coded Allergies: No Known Drug Allergies (Unverified , 08/15/17) ROS Review of System 14 point ROS evlauated with pertinent positives noted per HPI PHYSICAL EXAM General: Alert, Oriented X3, Cooperative, No acute distress HEENT: Atraumatic, Mucous membr. moist/pink Lungs: Clear to auscultation, Normal air movement Heart: Regular rate (SR), Normal S1, Normal S2, No murmurs Abdomen: Soft, No tenderness Extremities: No cyanosis, No edema Skin: No breakdown, No significant lesion Neuro: Normal speech, Sensation intact Psych/Mental Status: Mental status NL, Mood NL MUSCULOSKELETAL: Osteoarthritic changes both hands VITALS/I&O VITALS/I&O: Vital Signs Date Time Temp Pulse Resp B/P (MAP) Pulse Ox O2 Delivery O2 Flow Rate FiO2 02/28/20 07:30 60 18 130/60 (83) 98 Room Air 02/28/20 05:55 98.0 98.0 LABS Lab: Laboratory Tests Test 02/28/20 06:10 White Blood Count 9.9 x10^3/uL (4.0-11.0) Red Blood Count 3.91 x10^6/uL (3.50-5.40) Hemoglobin 12.8 g/dL (12.0-15.5) Hematocrit 37.7 % (36.0-47.0) Mean Corpuscular Volume 97 fL (79-100) Mean Corpuscular Hemoglobin 33 pg (25-35) Mean Corpuscular Hemoglobin Concent 34 g/dL (31-37) Red Cell Distribution Width 15.1 % (11.5-14.5) H Platelet Count 327 x10^3/uL (140-400) Neutrophils (%) (Auto) 74 % (31-73) H Lymphocytes (%) (Auto) 16 % (24-48) L Monocytes (%) (Auto) 8 % (0-9) Eosinophils (%) (Auto) 1 % (0-3) Basophils (%) (Auto) 1 % (0-3) Neutrophils # (Auto) 7.4 x10^3/uL (1.8-7.7) Lymphocytes # (Auto) 1.6 x10^3/uL (1.0-4.8) Monocytes # (Auto) 0.8 x10^3/uL (0.0-1.1) Eosinophils # (Auto) 0.1 x10^3/uL (0.0-0.7) Basophils # (Auto) 0.1 x10^3/uL (0.0-0.2) D-Dimer (Elda) 0.36 ug/mlFEU (0.00-0.50) Sodium Level 141 mmol/L (136-145) Potassium Level 3.4 mmol/L (3.5-5.1) L Chloride Level 103 mmol/L (98-107) Carbon Dioxide Level 30 mmol/L (21-32) Anion Gap 8 (6-14) Blood Urea Nitrogen 9 mg/dL (7-20) Creatinine 0.5 mg/dL (0.6-1.0) L Estimated GFR (Cockcroft-Gault) 127.6 BUN/Creatinine Ratio 18 (6-20) Glucose Level 102 mg/dL (70-99) H Calcium Level 8.5 mg/dL (8.5-10.1) Total Bilirubin 0.3 mg/dL (0.2-1.0) Aspartate Amino Transferase (AST) 19 U/L (15-37) Alanine Aminotransferase (ALT) 14 U/L (14-59) Alkaline Phosphatase 94 U/L (46-116) Creatine Kinase 44 U/L (26-192) Troponin I Quantitative < 0.017 ng/mL (0.000-0.055) C-Reactive Protein, Quantitative 0.7 mg/L (0-3.3) EJ-Jwj-Q-Type Natriuretic Peptide 474 pg/mL (0-124) H Total Protein 6.8 g/dL (6.4-8.2) Albumin 3.2 g/dL (3.4-5.0) L Albumin/Globulin Ratio 0.9 (1.0-1.7) L Laboratory Tests 02/28/20 06:10 Laboratory Tests 02/28/20 06:10 ECHOCARDIOGRAM ECHOCARDIOGRAM <Conclusion> The left ventricle is normal size. The left ventricular systolic function is normal. The ejection fraction is 55-60%. There is borderline concentric left ventricular hypertrophy. There is no significant aortic valvular stenosis. Doppler and Color Flow revealed no significant aortic regurgitation. Doppler and Color Flow revealed no mitral valve regurgitation noted. Doppler and Color Flow revealed trace tricuspid regurgitation. There is no evidence of significant pericardial effusion. DATE: 08/16/17 1650 STRESS TEST STRESS TEST Conclusion 1. Baseline abnormal EKG but no EKG evidence of stress-induced ischemia. 2. Nuclear imaging shows no reversible ischemia or infarct. 3. Normal left ventricular systolic function with ejection fraction of 65%. 4. Moderately low to low risk Lexiscan nuclear stress test. DATE: 08/16/17 1459 ASSESSMENT/PLAN ASSESSMENT/PLAN 1. Atypical chest pain: no CP but +for right neck/arm discomfort, no further recurrence. initial trop nml, EKG SR without acute changes 2. HTN: controlled, no home meds 3. COPD with tobaccoism 4. Chronic alcoholism: 1/2 pint whiskey nightly using is for sleep 5. Coronary calcifications: from past CT 6. Fatty liver disease with associated ETOH 7. Diarrhea: 6x daily loose to watery mucousy. defer to PCP 8. Hx of CVA 9. Hypokalemia/hypomagnesemia Recommendations 1. Trend troponin. If remains nml then will plan for outpt TTE and MPI. 2. Will need to address ETOH use and diarrhea, will defer to PCP 3. Smoking cessation. Will need inhalers for COPD. recommend ouitpt PFTs. 4. Start on ASA. lipids on goal HDL at 83. 5. Replace K and Mg. YEMI TREJO MD 02/29/20 1703: CARDIAC CONSULT ASSESSMENT/PLAN ASSESSMENT/PLAN Late entry for 02/28/2020 pt. seen and examined. 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 HU LUCAS APRN Feb 28, 2020 09:07 YEMI TREJO MD Feb 29, 2020 17:03
[2020-02-28 09:28] LABS: CHOLESTEROL/HDL RATIO 2.3
[2020-02-28 09:35] VITALS: BP 117/80
--- NOTE | 2020-02-28 10:08 | EKG ---
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
[2020-02-28] MEDS ORDERED: POTASSIUM CHLORIDE 20 MEQ TABLET.ER. PO ONE (10:30)
[2020-02-28] MEDS ORDERED: MAGNESIUM SULFATE 2GM 50 ML IV ONE (11:00)
[2020-02-28 11:10] VITALS: BP 125/82
--- NOTE | 2020-02-28 12:29 | NUR ---
I.E. home medication: Patient states she is supposed to be taking a blood pressure medication and daily 81mg ASA but has not in the last several months due to cost of medication.
[2020-02-28 14:48] VITALS: BP 149/59
[2020-02-28] MEDS ORDERED: LISI-338 PO (15:44)
[2020-02-28] MEDS ORDERED: ASPI-886 PO (15:44)
--- NOTE | 2020-02-28 15:47 | PDOC3 ---
Discharge Summary Visit Information Date of Admission: Feb 28, 2020 Date of Discharge: Feb 28, 2020 Admitting Diagnosis: Chest pain Final Diagnosis Problems Medical Problems: (1) Vomiting bile Status: Acute Brief Hospital Course Allergies Allergies Coded Allergies Type Severity Reaction Last Updated Verified No Known Drug Allergies 08/15/17 No Vital Signs Vital Signs Date Time Temp Pulse Resp B/P (MAP) Pulse Ox O2 Delivery O2 Flow Rate FiO2 02/28/20 14:48 98.0 71 22 149/59 (89) 98 Nasal Cannula 2.0 98.0 Lab Results Laboratory Tests Test 02/28/20 06:10 02/28/20 10:35 White Blood Count 9.9 x10^3/uL (4.0-11.0) Red Blood Count 3.91 x10^6/uL (3.50-5.40) Hemoglobin 12.8 g/dL (12.0-15.5) Hematocrit 37.7 % (36.0-47.0) Mean Corpuscular Volume 97 fL (79-100) Mean Corpuscular Hemoglobin 33 pg (25-35) Mean Corpuscular Hemoglobin Concent 34 g/dL (31-37) Red Cell Distribution Width 15.1 % (11.5-14.5) Platelet Count 327 x10^3/uL (140-400) Neutrophils (%) (Auto) 74 % (31-73) Lymphocytes (%) (Auto) 16 % (24-48) Monocytes (%) (Auto) 8 % (0-9) Eosinophils (%) (Auto) 1 % (0-3) Basophils (%) (Auto) 1 % (0-3) Neutrophils # (Auto) 7.4 x10^3/uL (1.8-7.7) Lymphocytes # (Auto) 1.6 x10^3/uL (1.0-4.8) Monocytes # (Auto) 0.8 x10^3/uL (0.0-1.1) Eosinophils # (Auto) 0.1 x10^3/uL (0.0-0.7) Basophils # (Auto) 0.1 x10^3/uL (0.0-0.2) D-Dimer (Elda) 0.36 ug/mlFEU (0.00-0.50) Sodium Level 141 mmol/L (136-145) Potassium Level 3.4 mmol/L (3.5-5.1) Chloride Level 103 mmol/L (98-107) Carbon Dioxide Level 30 mmol/L (21-32) Anion Gap 8 (6-14) Blood Urea Nitrogen 9 mg/dL (7-20) Creatinine 0.5 mg/dL (0.6-1.0) Estimated GFR (Cockcroft-Gault) 127.6 BUN/Creatinine Ratio 18 (6-20) Glucose Level 102 mg/dL (70-99) Calcium Level 8.5 mg/dL (8.5-10.1) Magnesium Level 1.6 mg/dL (1.8-2.4) Total Bilirubin 0.3 mg/dL (0.2-1.0) Aspartate Amino Transf (AST/SGOT) 19 U/L (15-37) Alanine Aminotransferase (ALT/SGPT) 14 U/L (14-59) Alkaline Phosphatase 94 U/L (46-116) Creatine Kinase 44 U/L (26-192) Troponin I Quantitative < 0.017 ng/mL (0.000-0.055) < 0.017 ng/mL (0.000-0.055) C-Reactive Protein, Quantitative 0.7 mg/L (0-3.3) PI-Ayr-N-Type Natriuretic Peptide 474 pg/mL (0-124) Total Protein 6.8 g/dL (6.4-8.2) Albumin 3.2 g/dL (3.4-5.0) Albumin/Globulin Ratio 0.9 (1.0-1.7) Triglycerides Level 160 mg/dL (0-150) Cholesterol Level 191 mg/dL (0-200) LDL Cholesterol, Calculated 76 mg/dL (0-100) VLDL Cholesterol, Calculated 32 mg/dL (0-40) Non-HDL Cholesterol Calculated 108 mg/dL (0-129) HDL Cholesterol 83 mg/dL (40-60) Cholesterol/HDL Ratio 2.3 Ethyl Alcohol Level 168 mg/dL (0-10) Laboratory Tests Test 02/28/20 06:10 02/28/20 10:35 White Blood Count 9.9 x10^3/uL (4.0-11.0) Red Blood Count 3.91 x10^6/uL (3.50-5.40) Hemoglobin 12.8 g/dL (12.0-15.5) Hematocrit 37.7 % (36.0-47.0) Mean Corpuscular Volume 97 fL (79-100) Mean Corpuscular Hemoglobin 33 pg (25-35) Mean Corpuscular Hemoglobin Concent 34 g/dL (31-37) Red Cell Distribution Width 15.1 % (11.5-14.5) Platelet Count 327 x10^3/uL (140-400) Neutrophils (%) (Auto) 74 % (31-73) Lymphocytes (%) (Auto) 16 % (24-48) Monocytes (%) (Auto) 8 % (0-9) Eosinophils (%) (Auto) 1 % (0-3) Basophils (%) (Auto) 1 % (0-3) Neutrophils # (Auto) 7.4 x10^3/uL (1.8-7.7) Lymphocytes # (Auto) 1.6 x10^3/uL (1.0-4.8) Monocytes # (Auto) 0.8 x10^3/uL (0.0-1.1) Eosinophils # (Auto) 0.1 x10^3/uL (0.0-0.7) Basophils # (Auto) 0.1 x10^3/uL (0.0-0.2) D-Dimer (Elda) 0.36 ug/mlFEU (0.00-0.50) Sodium Level 141 mmol/L (136-145) Potassium Level 3.4 mmol/L (3.5-5.1) Chloride Level 103 mmol/L (98-107) Carbon Dioxide Level 30 mmol/L (21-32) Anion Gap 8 (6-14) Blood Urea Nitrogen 9 mg/dL (7-20) Creatinine 0.5 mg/dL (0.6-1.0) Estimated GFR (Cockcroft-Gault) 127.6 BUN/Creatinine Ratio 18 (6-20) Glucose Level 102 mg/dL (70-99) Calcium Level 8.5 mg/dL (8.5-10.1) Magnesium Level 1.6 mg/dL (1.8-2.4) Total Bilirubin 0.3 mg/dL (0.2-1.0) Aspartate Amino Transf (AST/SGOT) 19 U/L (15-37) Alanine Aminotransferase (ALT/SGPT) 14 U/L (14-59) Alkaline Phosphatase 94 U/L (46-116) Creatine Kinase 44 U/L (26-192) Troponin I Quantitative < 0.017 ng/mL (0.000-0.055) < 0.017 ng/mL (0.000-0.055) C-Reactive Protein, Quantitative 0.7 mg/L (0-3.3) UX-Gzh-K-Type Natriuretic Peptide 474 pg/mL (0-124) Total Protein 6.8 g/dL (6.4-8.2) Albumin 3.2 g/dL (3.4-5.0) Albumin/Globulin Ratio 0.9 (1.0-1.7) Triglycerides Level 160 mg/dL (0-150) Cholesterol Level 191 mg/dL (0-200) LDL Cholesterol, Calculated 76 mg/dL (0-100) VLDL Cholesterol, Calculated 32 mg/dL (0-40) Non-HDL Cholesterol Calculated 108 mg/dL (0-129) HDL Cholesterol 83 mg/dL (40-60) Cholesterol/HDL Ratio 2.3 Ethyl Alcohol Level 168 mg/dL (0-10) Brief Hospital Course Ms Westfall is a 54-year-old female w/ PMHx CVA (x2), Hypertension, smoker, heavy ETOH abuse who presents to the emergency room complaining of chest tightness, right shoulder pain that radiates into the right side of the neck, nausea, vomiting. Patient states that she had some right shoulder pain a couple of days ago that was mild and resolved on its own. She woke up this morning and had right shoulder pain again. The pain got significantly worse and started radiating into her neck. This is been ongoing for the last 5 hours. She then developed chest tightness with associated shortness of breath. She denies any wheezing, cough, URI symptoms, fever. She has been having nausea and had an episode of vomiting while in the emergency room. She denies any abdominal pain. Ethanol level 168 at 6:10 AM, WBC 9.9, Hb 12.8, platelets 327, d-dimer 0.36, troponin 0, albumin 3.2, BNP 474, NA 141, K3.4, magnesium 1.6, BUN 9, CR 0.5, glucose 102 CXR with emphysematous changes. RUQ US negative for acute cholecystitis. Seen by cardiology, improved with ASA and zofran. Replaced K and mag IV and discharged with lisinopril. Consults: Cardiology Chest pain - no CP. Trops nml x3, EKG SR without acute changes HTN - controlled, no home meds COPD - stable Tobacco abuse Chronic alcoholism - 1/2 pint whiskey nightly using is for sleep Coronary calcifications: from past CT Fatty liver disease with associated ETOH Diarrhea - 6x daily loose to watery mucousy. defer to PCP Hx of CVA Hypokalemia/hypomagnesemia - replaced Acute alcohol intoxication - can likely d/c when sober Discharge Information Condition at Discharge: Improved Follow Up: Weeks (1) Disposition/Orders: D/C to Home Scheduled Aspirin (Aspirin Ec) 81 Mg Tablet.dr, 81 MG PO [id number] for HTN for 30 Days, #30 Ref 11 Prescribed by: EMELY DAVIS MD on 02/28/20 1544 Lisinopril (Lisinopril) 5 Mg Tablet, 1 TAB PO DAILY for HTN for 30 Days, #30 Ref 1 Prescribed by: EMELY DAVIS MD on 02/28/20 1544 Justicifation of Admission Dx: Justifications for Admission: Justification of Admission Dx: Yes EMELY DAVIS MD Feb 28, 2020 15:47
[2020-02-28] MEDS ORDERED: FLU VACC QS 2020-21(6MOS+)/PF 0.5 ML SYRINGE. VAX IM ONE (17:00)
--- NOTE | 2020-02-28 17:52 | NUR ---
Discharge Note: JADON MACK [address] [place] [address] Discharge instructions and discharge home medications reviewed with Patient and a copy given. All questions have been answered and understanding verbalized. The following instructions and handouts were given: DIET, ACTIVITY, MEDICATION LIST AND FOLLOW UP INSTRUCTIONS PROVIDED TO PATIENT. Discontinued lines and drains: Peripheral IV DISCONTINUED AND CATHETER intact. Patient discharged to Home or Self Care with Self via Ambulated
[2020-02-29] MEDS ORDERED: ASPIRIN ENTERIC COATED 81 MG TABLET.DR. PO SCH (08:00)
== END 2020-02-28 17:30 | disposition home or self-care (01) ==
LOC: ER 05:40 → 2 SOUTH 07:59
PROVIDERS: ADMIT Internal Medicine; ATTEND Internal Medicine
DX: R07.89 Other chest pain (principal); I10 Essential (primary) hypertension; E87.6 Hypokalemia; E83.42 Hypomagnesemia; E78.5 Hyperlipidemia, unspecified; F17.210 Nicotine dependence, cigarettes, uncomplicated; F10.229 Alcohol dependence with intoxication, unspecified; J44.9 Chronic obstructive pulmonary disease, unspecified; K76.0 Fatty (change of) liver, not elsewhere classified; Z86.73 Personal history of transient ischemic attack (TIA), and cerebral infarction without residual deficits
CPT/HCPCS: 36415; 71046; 76705; 80053; 80061; 82550; 83735; 83880; 84484; 85025; 85379; 86140; 90471; 90686; 93005; 96365; 96366; 96375; 99285; G0378; G0480; J2270; J2405; J3475; G0379

== ENCOUNTER 2021-08-23 03:23 | Emergency (ER) | payer SELFPAY ==
[~2021-08-23] VITALS: Ht 157.5 cm; Wt 47.1 kg
[~2021-08-23 03:23] MED LIST changes: -LISI-338 PO; +LISI5TAB15 PO
--- NOTE | 2021-08-23 03:45 | PHYS DOC ---
Past Medical History Past Medical History: CVA, Hypertension, Other Additional Past Medical Histor: cva x 2(last one 2013, no deficits) Past Surgical History: Smoking Status: Current Every Day Smoker Alcohol Use: Heavy Drug Use: None General Adult EDM: Chief Complaint: RIB PAIN HPI: HPI: Patient is a 56 year old female who presents with complaint of left-sided chest wall pain. The patient states that she had an accidental fall yesterday evening at approximately 1800. The patient states that she was walking down her porch steps, she accidentally slipped and fell onto her right side, injuring her ribs on the left side. Patient states that she has had continued pain that worsens when she tries to take a deep breath. Has not taken any medications for symptoms at this time. Patient did not hit head or lose consciousness. She denies any other injuries. States pain has become severe and made it difficult for her to be able to sleep. Also states it makes it more difficult to breathe. Review of Systems: Review of Systems: Constitutional: Denies fever or chills. [] Eyes: Denies change in visual acuity. [] HENT: Denies nasal congestion or sore throat. [] Respiratory: Pain with breathing, denies cough. [] Cardiovascular: Denies chest pain or edema. [] GI: Denies abdominal pain, nausea, vomiting, bloody stools or diarrhea. [] : Denies dysuria. [] Musculoskeletal: Left-sided rib pain, denies back or joint pain. [] Integument: Denies rash. [] Neurologic: Denies headache, focal weakness or sensory changes. [] Endocrine: Denies polyuria or polydipsia. [] Heart Score: C/O Chest Pain: No Risk Factors: Risk Factors: DM, Current or recent (<one month) smoker, HTN, HLP, family history of CAD, obesity. Risk Scores: Score 0 - 3: 2.5% MACE over next 6 weeks - Discharge Home Score 4 - 6: 20.3% MACE over next 6 weeks - Admit for Clinical Observation Score 7 - 10: 72.7% MACE over next 6 weeks - Early Invasive Strategies Allergies: Allergies: Allergies Coded Allergies Type Severity Reaction Last Updated Verified No Known Drug Allergies 08/23/21 No Physical Exam: PE: Constitutional: Alert, afebrile, appears in moderate to severe discomfort. [] HENT: Normocephalic, atraumatic, bilateral external ears normal, oropharynx moist, no oral exudates, nose normal. [] Eyes: PERRLA, EOMI, conjunctiva normal, no discharge. [] Neck: Normal range of motion, no tenderness, supple, no stridor. [] Cardiovascular:Heart rate regular rhythm, no murmur [] Lungs & Thorax: Patient is visibly splinting her breathing due to reported pain, bruising along the left mid axillary line in the mid to lower rib cage, associated tenderness to palpation in this area, breath sounds equal bilaterally [] Abdomen: Bowel sounds normal, soft, no tenderness, no masses, no pulsatile masses. [] Skin: Warm, dry, no erythema, no rash. [] Back: No tenderness, no CVA tenderness. [] Extremities: No tenderness, no cyanosis, no clubbing, ROM intact, no edema. [] Neurologic: Alert and oriented X 3, normal motor function, normal sensory function, no focal deficits noted. [] Current Patient Data: Labs: Not performed Vital Signs: Vital Signs Date Time Temp Pulse Resp B/P (MAP) Pulse Ox O2 Delivery O2 Flow Rate FiO2 08/23/21 03:25 98.4 71 18 128/74 (92) 97 Room Air 98.4 Vital Signs Date Time Temp Pulse Resp B/P (MAP) Pulse Ox O2 Delivery O2 Flow Rate FiO2 08/23/21 04:05 96 Room Air 08/23/21 03:55 67 22 114/61 (78) 08/23/21 03:25 98.4 98.4 EKG: EKG: Not performed[] Radiology/Procedures: Radiology/Procedures: 3 view chest and left rib series interpreted by me: Left 10th rib fracture, no p neumothorax, chronic pulmonary fibrotic changes. [] Course & Med Decision Making: Course & Med Decision Making Pertinent Labs and Imaging studies reviewed. (See chart for details) My evaluation of the patient's x-ray series shows a lucency through the left 10th rib concerning for an acute fracture. The patient was treated with IM morphine and DuoNeb treatment in the emergency department. Patient notes improvement in pain symptoms and work of breathing has improved at this time. Vital signs are stable and patient is maintaining oxygen saturation at 96% on room air. Patient is appropriate for discharge at this time. Prescribed albuterol inhaler and Alviso for outpatient treatment. Recommend follow-up with primary care provider in the next 5 days for reevaluation if symptoms are not improving and return to the emergency department for any worsening symptoms. Patient voiced understanding and in agreement with treatment plan. [] Dragon Disclaimer: Dragon Disclaimer: This electronic medical record was generated, in whole or in part, using a voice recognition dictation system. Departure Departure Impression: Primary Impression: Closed rib fracture Qualified Codes: S22.32XA - Fracture of one rib, left side, initial encounter for closed fracture Disposition: HOME / SELF CARE / HOMELESS Condition: IMPROVED Referrals: NO PCP (PCP) JANINE BRUNO MD Patient Instructions: Rib Fracture Additional Instructions: Follow-up with your primary care provider in the next 5 to 7 days for reevaluation. Return to the emergency department for any worsening symptoms. Scripts Albuterol Sulfate (PROAIR HFA INHALER) 8.5 Gm Hfa.aer.ad 2 PUFF IH PRN Q4-6HRS PRN for SHORTNESS OF BREATH for 21 Days, #1 INHALER 0 Refills Prov: LEYDI MAHAJAN MD 08/23/21 Hydrocodone Bit/Acetaminophen (HYDROCODONE-APAP 5-325 ) 1 Tab Tablet 1 TAB PO Q4-6HRS PRN for PAIN, #18 TAB 0 Refills Prov: LEYDI MAHAJAN MD 08/23/21 LEYDI MAHAJAN MD Aug 23, 2021 03:45
[2021-08-23] MEDS ORDERED: MORPHINE SULFATE 10 MG/ML VIAL. IM ONE (04:00)
[2021-08-23] MEDS ORDERED: IPRATRPIUM/ALBUTEROL 0.5/2.5MG 3 ML NEBU. NEB ONE (04:00)
[2021-08-23] MEDS ORDERED: ONDANSETRON ODT 4 MG TAB.RAPDIS. PO ONE (04:00)
[2021-08-23] MEDS ORDERED: ALBU2.5V8 IH (04:21)
[2021-08-23] MEDS ORDERED: HYDR-2761 PO (04:21)
--- NOTE | 2021-08-23 04:25 | RAD ---
XR RIBS MIN 3 VIEWS LT W/PA CHEST History: Follow left side. Left rib pain. Comparison: Chest x-ray 02/28/2020. Technique: PA and lateral chest radiographs. Findings: The lungs are adequately and symmectrically inflated. No airspace consolidation, pleural effusion or pneumothorax. Increased aeration at the right upper lobe consistent with emphysematous change. The ca rdiomediastinal silhoutte and pulmonary vasculature are within normal limits. Calcification aortic ar ch. Soft tissues and osseous structures are unremarkable. No rib fracture identified. Impression: 1. No acute cardiopulmonary process. No rib fracture or sequela identified. 2. Moderate to severe emphysema. Electronically signed by: Brooks Sapp MD (08/23/2021 4:22 AM) [facility]
[2021-08-23 04:32] VITALS: BP 99/54
== END 2021-08-23 04:34 | disposition home or self-care (01) ==
LOC: ER 03:23
DX: S22.32XA Fracture of one rib, left side, initial encounter for closed fracture (principal); F17.200 Nicotine dependence, unspecified, uncomplicated; I10 Essential (primary) hypertension; Z86.73 Personal history of transient ischemic attack (TIA), and cerebral infarction without residual deficits; F10.20 Alcohol dependence, uncomplicated; Y90.9 Presence of alcohol in blood, level not specified; W01.0XXA Fall on same level from slipping, tripping and stumbling without subsequent striking against object, initial encounter; Y93.01 Activity, walking, marching and hiking; Y92.89 Other specified places as the place of occurrence of the external cause; Y99.8 Other external cause status
CPT/HCPCS: 71101; 94640; 96372; 99283; J2270; 99285-25